=== PATIENT | female | born 1995 | race African-American/Black ===

== ENCOUNTER 2018-07-19 16:40 | Emergency (ER) | payer OTHER ==
[2018-07-19 16:44] VITALS: BP 119/84; PULSE 80; TEMP 99.4; BMI 19.8
--- NOTE | 2018-07-19 17:36 | PDOC ---
History of Present Illness - History of Present Illness Initial Comments: 07/19/18 18:02 The patient is a 22 year old female, with no significant PMH who presents to the emergency department with cough and green nasal discharge today. Patient has not taken any medications. No history of asthma. No recent travel or sick contact. The patient denies chest pain, shortness of breath, headache and dizziness. Denies fever, chills, nausea, vomit, diarrhea and constipation. Denies dysuria, frequency, urgency and hematuria. Allergies: NKA Past surgical history: None reported. Social history: No reported alcohol, drug or cigarette use. <Tiffany Rankin - Last Filed: 07/19/18 18:04> - General History Source: Patient Exam Limitations: No Limitations <Rea Dumont - Last Filed: 07/20/18 09:24> - General Chief Complaint: Cold Symptoms Stated Complaint: cough, sore throat Time Seen by Provider: 07/19/18 16:47 Past History <Tiffany Rankin - Last Filed: 07/19/18 18:04> - Past Medical History COPD: No - Suicide/Smoking/Psychosocial Hx Smoking History: Never smoked Have you smoked in the past 12 months: No Hx Alcohol Use: No Drug/Substance Use Hx: No Substance Use Type: None <Rea Dumont - Last Filed: 07/20/18 09:24> - Past Medical History Allergies/Adverse Reactions: Allergies Allergy/AdvReac Type Severity Reaction Status Date / Time No Known Allergies Allergy Verified 07/19/18 16:41 Home Medications: Ambulatory Orders Benzonatate [Tessalon Pearls -] 100 mg PO TID PRN #21 capsule 07/19/18 Guaifenesin [Mucinex -] 600 mg PO BID #14 tablet.er 07/19/18 Review of Systems - Review of Systems Able to Perform ROS?: Yes Comments:: 07/19/18 18:02 ADULT ROS GENERAL/CONSTITUTIONAL: No fever or chills. No weakness. HEAD, EYES, EARS, NOSE AND THROAT: No change in vision. No ear pain or discharge. No sore throat. (+) Green nasal discharge. CARDIOVASCULAR: No chest pain or shortness of breath. RESPIRATORY: (+) Cough. No wheezing, or hemoptysis. GASTROINTESTINAL: No nausea, vomiting, diarrhea or constipation. GENITOURINARY: No dysuria, frequency, or change in urination. MUSCULOSKELETAL: No joint or muscle swelling or pain. No neck or back pain. SKIN: No rash NEUROLOGIC: No headache, vertigo, loss of consciousness, or change in strength/ sensation. ENDOCRINE: No increased thirst. No abnormal weight change. HEMATOLOGIC/LYMPHATIC: No anemia, easy bleeding, or history of blood clots. ALLERGIC/IMMUNOLOGIC: No hives or skin allergy. <Tiffany Rankin - Last Filed: 07/19/18 18:04> *Physical Exam - Vital Signs Last Vital Signs Temp Pulse Resp BP Pulse Ox 99.4 F 80 16 119/84 100 07/19/18 16:41 07/19/18 16:41 07/19/18 16:41 07/19/18 16:41 07/19/18 16:41 - Physical Exam Comments: 07/19/18 18:05 ADULT PE GENERAL: The patient is in no acute distress. HEAD: Normal with no signs of trauma. EYES: PERRLA, EOMI, sclera anicteric, conjunctiva clear. ENT: Ears normal, nares patent, oropharynx clear without exudates. (+) Right tonsilar enlargement. Uvula is midline. Moist mucous membranes. NECK: Normal range of motion, supple without lymphadenopathy, JVD, or masses. LUNGS: Breath sounds equal, clear to auscultation bilaterally. No wheezes, and no crackles. HEART:Regular rate and rhythm, normal S1 and S2 without murmur, rub or gallop. ABDOMEN: Soft, nontender, normoactive bowel sounds. No guarding, no rebound. No masses palpable. EXTREMITIES: Normal range of motion, no edema. No clubbing or cyanosis. No erythema, or tenderness. NEUROLOGICAL: Cranial nerves II through XII grossly intact. Normal speech. No focal neurological deficits. MUSCULOSKELETAL: Back non-tender to palpation, no CVA tenderness SKIN: Warm, Dry, normal turgor, no rashes or lesions noted. <Tiffany Rankin - Last Filed: 07/19/18 18:04> - Vital Signs Last Vital Signs Temp Pulse Resp BP Pulse Ox 99.4 F 80 16 119/84 100 07/19/18 16:41 07/19/18 16:41 07/19/18 16:41 07/19/18 16:41 07/19/18 16:41 <Rea Dumont - Last Filed: 07/20/18 09:24> Medical Decision Making - Medical Decision Making 07/19/18 18:28 22-year-old female presenting with a complaint of sore throat, cough, mucus production. No fevers. No shortness of breath. Examination normal - No rhonchi noted Right tonsillar enlargement, no exudate. No cervical lymphadenopathy no drooling, muffled voice, neck pain. Rapid strep is negative Chest x-ray is clear Will discharged home. Symptomatic treatment Clinical Impression: viral upper respiratory infection, initial presentation <Rea Dumont - Last Filed: 07/20/18 09:24> *DC/Admit/Observation/Transfer - Attestations Scribe Attestion: 07/19/18 18:03 Documentation prepared by Tiffany Rankin, acting as biomedical scientist for Rea Dumont MD. <Tiffany Rankin - Last Filed: 07/19/18 18:04> - Discharge Dispostion Decision to Admit order: No <Rea Dumont - Last Filed: 07/20/18 09:24> Diagnosis at time of Disposition: Viral upper respiratory illness - Discharge Dispostion Disposition: HOME Condition at time of disposition: Stable - Prescriptions Prescriptions: Benzonatate [Tessalon Pearls -] 100 mg PO TID PRN #21 capsule PRN Reason: Cough Guaifenesin [Mucinex -] 600 mg PO BID #14 tablet.er - Referrals Referrals: Reece Sparrow MD [Staff Physician] - - Patient Instructions Printed Discharge Instructions: DI for Viral Upper Respiratory Infection -- Adult, DI for Common Cold Additional Instructions: Ms Arriaga, Thank you for coming in to the ER today Today you were seen for an upper respiratory infection. You may take tessalon perles as needed for cough during the day. You may take robitussin AC as needed for cough at night. Do not drive or operate heavy machinery while taking this medication as it may make you drowsy. Stay well hydrated and rest. Follow up with your primary care provider within 24 to 48 hours. Go to the emergency room if any new or worsening symptoms develop. - Post Discharge Activity Forms/Work/School Notes: Back to Work, Back to School
== END 2018-07-19 18:46 | disposition home or self-care (01) ==
LOC: FER 16:40
DX: J06.9 Acute upper respiratory infection, unspecified (principal)
CPT/HCPCS: 71046-TC-FY; 87070; 87430; 99282-25